=== PATIENT | female | born 1955 | race Caucasian/White ===

== ENCOUNTER 2017-04-11 20:46 | Emergency (ER) | payer MEDICARE ==
[~2017-04-11] VITALS: Ht 167.6 cm; Wt 70.0 kg
[~2017-04-11 20:46] MED LIST: GABA300C10 PO; HYDR-3237 PO; METF10002 PO
[2017-04-11] MEDS ORDERED: SODIUM CHLORIDE FLUSH 10ML SYR IVF ONE (21:30)
[2017-04-11 21:42] LABS: HEMATOCRIT 37.2 % (34.6-47.8); HEMOGLOBIN 12.2 g/dL (11.7-16.4); WHITE BLOOD COUNT 5.6 x10^3/uL (3.4-10)
[2017-04-11 21:53] LABS: BLOOD UREA NITROGEN 8 mg/dL (7-18)
[2017-04-11 21:56] LABS: ACETAMINOPHEN < 2 mcg/mL (10-30); ASPARTATE AMINO TRANSFERASE 11 U/L (15-37)
[2017-04-11 22:47] VITALS: BP 117/68
== END 2017-04-11 22:50 | disposition home or self-care (01) ==
LOC: ED 22:44
DX: S00.83XA Contusion of other part of head, initial encounter (principal); S00.33XA Contusion of nose, initial encounter; E11.9 Type 2 diabetes mellitus without complications; E03.9 Hypothyroidism, unspecified; Z85.850 Personal history of malignant neoplasm of thyroid; Z90.710 Acquired absence of both cervix and uterus; W18.39XA Other fall on same level, initial encounter; Y93.89 Activity, other specified; Y92.89 Other specified places as the place of occurrence of the external cause; Y99.8 Other external cause status
CPT/HCPCS: 36415; 70450; 80053; 80307; 80329; 85025; 85610; 85730; 99285; G0480

== ENCOUNTER 2017-11-29 21:33 | Emergency (ER) | payer MEDICARE ==
[~2017-11-29] VITALS: Ht 167.6 cm; Wt 79.5 kg
[2017-11-29] MEDS ORDERED: METHOCARBAMOL 750 MG TABLET ONE (21:57)
[2017-11-29] MEDS ORDERED: METHOCARBAMOL 750 MG TABLET PO ONE (22:00)
[2017-11-29 22:49] VITALS: BP 141/87
== END 2017-11-29 23:15 | disposition home or self-care (01) ==
LOC: ED 23:05
DX: M54.12 Radiculopathy, cervical region (principal); C73 Malignant neoplasm of thyroid gland; E03.9 Hypothyroidism, unspecified; E11.9 Type 2 diabetes mellitus without complications; F32.9 Major depressive disorder, single episode, unspecified; G40.909 Epilepsy, unspecified, not intractable, without status epilepticus
CPT/HCPCS: 72050; 99284

== ENCOUNTER 2017-12-01 20:44 | Emergency (ER) | payer MEDICARE ==
[~2017-12-01] VITALS: Ht 167.6 cm; Wt 81.4 kg
[2017-12-01] MEDS ORDERED: KETOROLAC 30 MG/1 ML ONE (21:22)
[2017-12-01] MEDS ORDERED: HYDROmorphone 2 MG/ML, 1ML ONE (21:23)
[2017-12-01] MEDS ORDERED: DIAZEPAM 5 MG TABLET ONE (21:23)
[2017-12-01] MEDS ORDERED: BUPIVACAINE/PF 0.5% INFIL ONE (21:30)
[2017-12-01] MEDS ORDERED: TRIAMCINOLONE ACETONIDE 40 MG/ML, 1ML IM ONE (21:30)
[2017-12-01] MEDS ORDERED: KETOROLAC 30 MG/1 ML IM ONE (21:30)
[2017-12-01] MEDS ORDERED: HYDROmorphone/PF 4 MG/ML, 1ML IM ONE (21:30)
[2017-12-01] MEDS ORDERED: DIAZEPAM 5 MG TABLET PO ONE (21:30)
[2017-12-01 22:16] VITALS: BP 140/86
== END 2017-12-01 22:48 | disposition home or self-care (01) ==
LOC: ED 21:49
DX: S16.1XXA Strain of muscle, fascia and tendon at neck level, initial encounter (principal); M19.90 Unspecified osteoarthritis, unspecified site; E03.9 Hypothyroidism, unspecified; F32.9 Major depressive disorder, single episode, unspecified; G40.909 Epilepsy, unspecified, not intractable, without status epilepticus; M54.12 Radiculopathy, cervical region; E11.9 Type 2 diabetes mellitus without complications; M46.02 Spinal enthesopathy, cervical region; X58.XXXA Exposure to other specified factors, initial encounter; Y93.89 Activity, other specified; Y92.89 Other specified places as the place of occurrence of the external cause; Y99.8 Other external cause status
CPT/HCPCS: 20552; 96372; 99285; J1170; J1885; J3301; J3490; 99284